=== PATIENT | female | born 1995 | race African-American/Black ===

== ENCOUNTER 2020-11-01 15:51 | Emergency (ER) | payer OTHER ==
[~2020-11-01] VITALS: Ht 182.9 cm; Wt 127.5 kg
[2020-11-01 16:46] LABS: BASOPHILS % (AUTO) 1 % (0-1); EOSINOPHILS % (AUTO) 0 % (1-7); LYMPHOCYTES % (AUTO) 10 % (22-44); MEAN CORPUSCULAR HEMOGLOBIN 27.2 pg (27.0-34.8); MEAN CORPUSCULAR HGB CONC 32.6 g/dL (32.4-35.8); MEAN PLATELET VOLUME 7.7 fL (7.4-10.4); MONOCYTES % (AUTO) 6 % (2-9); NEUTROPHILS % (AUTO) 83 % (42-75); PLATELET COUNT 333 x10^3/uL (130-400); RED BLOOD COUNT 5.01 x10^6/uL (3.82-5.3); RED CELL DISTRIBUTION WIDTH 13.9 % (9.6-15.2)
[2020-11-01 16:55] LABS: ALBUMIN 3.5 g/dL (3.4-5.0); ANION GAP 5 mmol/L (5-15); CALCIUM 9.1 mg/dL (8.5-10.1); CHLORIDE 107 mmol/L (98-107); CREATININE 0.85 mg/dL (0.55-1.02)
--- NOTE | 2020-11-01 17:29 | NUR ---
PT AMBULATED TO ROOM FROM [facility]. PT CO ASTHMA EXACERBATION, STATING IT IS HARD TO BREATHE. AUDIBLE WHEEZES HEARD. PT STATED THAT SHE IS OUT OF HER RESCUE INHALER. PT ALSO STATED THAT SHE WAS DIAGNOSED WIT TRICHAMONAS 2 WEEKS AGO AND FINISHED HER ABX COURSE, BUT IS STILL EXPERIENCING ITCHINESS AND DISCAHRGE. PT DENIES ANY FEVER OR CP.
[2020-11-01 17:32] VITALS: BP 149/77
[2020-11-01] MEDS ORDERED: ALBUTEROL SULFATE 2.5MG/0.5ML ONE (17:49)
[2020-11-01] MEDS ORDERED: ALBUTEROL SULFATE 2.5 MG/3 ML NPPB SCH (18:00)
--- NOTE | 2020-11-01 18:03 | NUR ---
ALBUTEROL NEBULIZER GIVEN. PT REPORTED EASIER TIME BREATHING.
[2020-11-01 18:08] LABS: MICROSCOPIC NOT IND
[2020-11-01] MEDS ORDERED: PHENAZOPYRIDINE 200 MG TABLET PO ONE (19:00)
[2020-11-01] MEDS ORDERED: PHENAZOPYRIDINE 200 MG TABLET ONE (19:25)
== END 2020-11-01 19:42 | disposition home or self-care (01) ==
LOC: ED 16:21
DX: J45.31 Mild persistent asthma with (acute) exacerbation (principal)
CPT/HCPCS: 36415; 76830; 80048; 81003; 82040; 84703; 85025; 94640; 99284; J7613